=== PATIENT | male | born 1970 | race Caucasian/White ===

== ENCOUNTER 2023-05-15 16:11 | Inpatient (IN) | payer OTHER ==
[2023-05-15 17:03] VITALS: BMI 18.5
[2023-05-15] MEDS ORDERED: NICOTINE POLACRILEX 2 MG GUM BUC PRN (19:50)
[2023-05-15] MEDS ORDERED: LOPERAMIDE HCL 2 MG CAPSULE PO PRN (19:50)
[2023-05-15] MEDS ORDERED: IBUPROFEN 400 MG TABLET (FP) PO PRN (19:50)
[2023-05-15] MEDS ORDERED: guaiFENesin 600 MG TABLET.ER (FP) PO PRN (19:50)
[2023-05-15] MEDS ORDERED: BENZONATATE 200 MG CAPSULE PO PRN (19:50)
[2023-05-15] MEDS ORDERED: BENZOCAINE/MENTHOL (CHLORASEPTIC ) LOZENGE MM PRN (19:50)
[2023-05-15] MEDS ORDERED: NALOXONE HCL (KLOXXADO) 8 MG SPRAY NS PRN (19:50)
[2023-05-15] MEDS ORDERED: NALOXONE HCL 0.4 MG/ML VIAL IM PRN (19:50)
[2023-05-15] MEDS ORDERED: MAG HYDROX/AL HYDROX/SIMETH 30 ML UNIT-DOSE CUP PO PRN (19:50)
[2023-05-15] MEDS ORDERED: POLYETHYLENE GLYCOL (HEALTHYLAX) 3350 17 GM PACKET PO PRN (19:50)
[2023-05-15] MEDS ORDERED: hydrOXYzine PAMOATE 25 MG CAPSULE (FP) PO PRN (19:50)
[2023-05-15] MEDS ORDERED: TUBERCULIN PPD 5 TU/0.1ML VIAL ID ONE ×2 (22:14→23:08)
[2023-05-15] MEDS: THIAMINE HCL 100 MG TABLET (FP) PO SCH (22:29)
[2023-05-15] MEDS: MELATONIN 5 MG TABLETS PO SCH (22:29)
[2023-05-15] MEDS: TUBERCULIN PPD 5 TU/0.1ML SYRINGE (IN PATIENT USE ONLY) ID ONE (22:56)
[2023-05-16] MEDS: NICOTINE 14 MG/24 HOURS TOPICAL PATCH TD SCH (09:41)
[2023-05-16] MEDS: PHENYTOIN NA EXTENDED 100 MG CAPSULE (FP) PO SCH (09:41)
[2023-05-16] MEDS: PRENATAL VITAMINS W/ FOLIC ACID TABLET (FP) PO SCH (09:42)
[2023-05-16] MEDS ORDERED: methaDONE HCL 10 MG TABLET PO SCH (10:00)
[2023-05-16 11:51] LABS: HEMATOCRIT 38.4 % (35.4-49); HEMOGLOBIN 12.8 GM/dL (11.7-16.9); MCH 29.5 pg (25.7-33.7); MCHC 33.4 g/dl (32.0-35.9); MEAN CELL VOLUME 88.6 fl (80-96); MEAN PLT VOLUME 9.5 fl (7.5-11.1); PLATELET COUNT 247 10^3/uL (134-434); RBC 4.33 M/mm3 (4.00-5.60); RDW 14.2 % (11.9-15.9); WHITE BLOOD COUNT 8.3 K/mm3 (4.0-10.0)
[2023-05-16 12:07] LABS: PH,URINE 7.5 (5.0-8.0); URINE APPEARANCE CLEAR; URINE BILIRUBIN NEGATIVE (NEGATIVE); URINE COLOR YELLOW; URINE GLUCOSE (UA) NEGATIVE (NEGATIVE); URINE KETONE NEGATIVE (NEGATIVE); URINE LEUK ESTERASE NEGATIVE (NEGATIVE); URINE NITRITE NEGATIVE (NEGATIVE); URINE PROTEIN NEGATIVE (NEGATIVE); URINE UROBILINOGEN 0.2 mg/dL (0.2-1.0)
[2023-05-16 12:54] LABS: CHLORIDE 102 mmol/L (98-107); POTASSIUM 4.1 mmol/L (3.5-5.1); SODIUM 139 mmol/L (136-145)
[2023-05-16 12:58] LABS: ALBUMIN 3.2 g/dl (3.4-5.0); ANION GAP 4 mmol/L (4-13); BLOOD UREA NITROGEN 16.5 mg/dL (7-18); CALCIUM 8.9 mg/dL (8.5-10.1); CO2 33 mmol/L (21-32); GLUCOSE,RANDOM 103 mg/dL (74-106)
[2023-05-16 13:01] LABS: CREATININE 0.9 mg/dL (0.55-1.3); SGOT/AST 10 U/L (15-37); SGPT/ALT 14 U/L (13-61)
[2023-05-16 13:02] LABS: BILIRUBIN,TOTAL 0.2 mg/dL (0.2-1)
[2023-05-16 13:03] LABS: TOT PROT 6.9 g/dl (6.4-8.2)
[2023-05-16 13:04] LABS: ALK PHOS 72 U/L (45-117)
[2023-05-16] MEDS: PHENYTOIN NA EXTENDED 100 MG CAPSULE (FP) PO ONE (16:59)
[2023-05-19] MEDS ORDERED: NICOTINE 14 MG/24 HOURS TOPICAL PATCH TD PRN (13:45)
[2023-05-19] MEDS: PHENYTOIN NA EXTENDED 100 MG CAPSULE (FP) PO SCH (21:02)
[2023-05-20] MEDS: ACETAMINOPHEN 325 MG TABLET (FP) PO PRN (06:16)
[2023-05-23] MEDS: MELATONIN 5 MG TABLETS PO SCH (21:18)
[2023-05-26] MEDS: SIMETHICONE 80 MG TAB.CHEW (FP) PO PRN (22:02)
[2023-05-26] MEDS: BACITRACIN ZINC 15 GM TUBE TOPICAL OINTMENT TP SCH (22:07)
[2023-05-27] MEDS: MAGNESIUM HYDROX 2400MG/30ML ORAL SUSPENSION 30 ML CUP PO PRN (21:32)
[2023-05-29] MEDS: IBUPROFEN 600 MG TABLET (FP) PO PRN (06:02)
[2023-06-01 07:34] VITALS: RESP 18
[2023-06-02 22:42] VITALS: BP 157/94; PULSE 97; TEMP 97.7
== END 2023-06-03 07:11 | disposition short-term general hospital (02) | DRG 772 ==
LOC: YASAS 16:11 → Y3E 21:54
PROVIDERS: ADMIT Allergy & Immunology; ATTEND Psychiatry & Neurology Pain Medicine
PROC: HZ42ZZZ Group Counseling for Substance Abuse Treatment, Cognitive-Behavioral (ICD-10-PCS; principal; 2023-05-15)
DX: F14.20 Cocaine dependence, uncomplicated (principal); F11.20 Opioid dependence, uncomplicated; F13.20 Sedative, hypnotic or anxiolytic dependence, uncomplicated; F12.20 Cannabis dependence, uncomplicated; F17.210 Nicotine dependence, cigarettes, uncomplicated; F19.282 Other psychoactive substance dependence with psychoactive substance-induced sleep disorder; J18.9 Pneumonia, unspecified organism; G40.909 Epilepsy, unspecified, not intractable, without status epilepticus; J45.909 Unspecified asthma, uncomplicated; J32.9 Chronic sinusitis, unspecified; I10 Essential (primary) hypertension; Z86.19 Personal history of other infectious and parasitic diseases
CPT/HCPCS: 36415; 80053; 80185; 80307; 81003; 85027; 86593; 86780; 87635; 93005; 93010

== ENCOUNTER 2023-06-03 13:21 | Inpatient (IN) | payer OTHER ==
[2023-06-03 13:59] VITALS: BMI 20.6
[2023-06-03] MEDS: methaDONE HCL 10 MG TABLET PO ONE (18:00)
[2023-06-03] MEDS: PHENYTOIN NA EXTENDED 100 MG CAPSULE (FP) PO ONE (18:00)
[2023-06-03] MEDS ORDERED: guaiFENesin 600 MG TABLET.ER (FP) PO PRN (18:51)
[2023-06-03] MEDS ORDERED: hydrOXYzine PAMOATE 25 MG CAPSULE (FP) PO PRN (18:51)
[2023-06-03] MEDS ORDERED: BENZOCAINE/MENTHOL (CHLORASEPTIC ) LOZENGE MM PRN (18:51)
[2023-06-03] MEDS ORDERED: NALOXONE HCL 0.4 MG/ML VIAL IM PRN (18:51)
[2023-06-03] MEDS ORDERED: BENZONATATE 200 MG CAPSULE PO PRN (18:51)
[2023-06-03] MEDS ORDERED: POLYETHYLENE GLYCOL (HEALTHYLAX) 3350 17 GM PACKET PO PRN (18:51)
[2023-06-03] MEDS ORDERED: NALOXONE HCL (KLOXXADO) 8 MG SPRAY NS PRN (18:51)
[2023-06-03] MEDS ORDERED: LOPERAMIDE HCL 2 MG CAPSULE PO PRN (18:51)
[2023-06-03] MEDS ORDERED: MAGNESIUM HYDROX 2400MG/30ML ORAL SUSPENSION 30 ML CUP PO PRN (18:51)
[2023-06-03] MEDS ORDERED: MAG HYDROX/AL HYDROX/SIMETH 30 ML UNIT-DOSE CUP PO PRN (18:51)
[2023-06-03] MEDS ORDERED: IBUPROFEN 400 MG TABLET (FP) PO PRN (18:51)
[2023-06-03] MEDS ORDERED: ALBUTEROL SO4 HFA INHALER IH PRN (19:04)
[2023-06-03] MEDS: MELATONIN 5 MG TABLETS PO SCH (21:37)
[2023-06-03] MEDS: PHENYTOIN NA EXTENDED 100 MG CAPSULE (FP) PO SCH (21:38)
[2023-06-03] MEDS: THIAMINE HCL 100 MG TABLET (FP) PO SCH (21:38)
[2023-06-04 02:22] LABS: URINE APPEARANCE CLEAR; URINE BILIRUBIN NEGATIVE (NEGATIVE); URINE COLOR DK YELLOW; URINE GLUCOSE (UA) NEGATIVE (NEGATIVE); URINE KETONE TRACE (NEGATIVE); URINE LEUK ESTERASE NEGATIVE (NEGATIVE); URINE NITRITE NEGATIVE (NEGATIVE); URINE PROTEIN TRACE (NEGATIVE)
[2023-06-04] MEDS ORDERED: methaDONE HCL 10 MG TABLET PO ONE (06:00)
[2023-06-04] MEDS: AZITHROMYCIN 500 MG TABLET PO SCH (10:03)
[2023-06-04] MEDS: LORATADINE 10 MG TABLET PO SCH (10:03)
[2023-06-04] MEDS: PRENATAL VITAMINS W/ FOLIC ACID TABLET (FP) PO SCH (10:03)
[2023-06-04 10:56] LABS: CHLORIDE 105 mmol/L (98-107); POTASSIUM 4.1 mmol/L (3.5-5.1); SODIUM 140 mmol/L (136-145)
[2023-06-04 11:02] LABS: CALCIUM 9.2 mg/dL (8.5-10.1)
[2023-06-04 11:03] LABS: ALBUMIN 3.7 g/dl (3.4-5.0); ANION GAP 9 mmol/L (4-13); BLOOD UREA NITROGEN 19.7 mg/dL (7-18); CO2 26 mmol/L (21-32); GLUCOSE,RANDOM 128 mg/dL (74-106)
[2023-06-04 11:04] LABS: CREATININE 0.8 mg/dL (0.55-1.3); SGPT/ALT 38 U/L (13-61)
[2023-06-04 11:05] LABS: TOT PROT 7.5 g/dl (6.4-8.2)
[2023-06-04 11:06] LABS: BILIRUBIN,TOTAL 0.2 mg/dL (0.2-1); SGOT/AST 27 U/L (15-37)
[2023-06-04 11:07] LABS: ALK PHOS 106 U/L (45-117)
[2023-06-04 11:11] LABS: HEMATOCRIT 38.7 % (35.4-49); HEMOGLOBIN 12.5 GM/dL (11.7-16.9); MCH 28.9 pg (25.7-33.7); MCHC 32.4 g/dl (32.0-35.9); MEAN CELL VOLUME 89.3 fl (80-96); MEAN PLT VOLUME 10.2 fl (7.5-11.1); PLATELET COUNT 205 10^3/uL (134-434); RBC 4.33 M/mm3 (4.00-5.60); RDW 15.1 % (11.9-15.9); WHITE BLOOD COUNT 11.6 K/mm3 (4.0-10.0)
[2023-06-04] MEDS: ACETAMINOPHEN 325 MG TABLET (FP) PO PRN (12:40)
[2023-06-05] MEDS ORDERED: methaDONE HCL 10 MG TABLET PO ONE ×2 (09:00→09:09)
[2023-06-05] MEDS: methaDONE HCL 10 MG TABLET PO ONE (09:31)
[2023-06-05] MEDS: IBUPROFEN 600 MG TABLET (FP) PO PRN (15:03)
[2023-06-06] MEDS ORDERED: methaDONE HCL 10 MG TABLET PO SCH ×2 (06:00)
[2023-06-06 07:14] VITALS: RESP 18
[2023-06-06] MEDS ORDERED: methaDONE HCL 10 MG TABLET PO ONE (09:07)
[2023-06-06] MEDS: MUPIROCIN CA 2% TOPICAL CREAM 15 GM TUBE TP SCH (21:40)
[2023-06-08 07:27] VITALS: BP 147/86; PULSE 100; TEMP 98.1
== END 2023-06-08 10:20 | disposition other institution (70) | DRG 772 ==
LOC: YASAS 13:21 → Y5N 18:42
PROVIDERS: ADMIT Allergy & Immunology; ATTEND Psychiatry & Neurology Pain Medicine
PROC: HZ42ZZZ Group Counseling for Substance Abuse Treatment, Cognitive-Behavioral (ICD-10-PCS; principal; 2023-06-03)
DX: F14.20 Cocaine dependence, uncomplicated (principal); F11.20 Opioid dependence, uncomplicated; F17.210 Nicotine dependence, cigarettes, uncomplicated; G40.909 Epilepsy, unspecified, not intractable, without status epilepticus; R73.9 Hyperglycemia, unspecified; R91.8 Other nonspecific abnormal finding of lung field; Z87.01 Personal history of pneumonia (recurrent); Z86.19 Personal history of other infectious and parasitic diseases; Z56.0 Unemployment, unspecified; Z59.00 Homelessness unspecified
CPT/HCPCS: 36415; 71046-TC-FY; 80053; 80307; 81003; 82962; 85027; 86593; 86780; 87635

== ENCOUNTER 2023-11-17 16:15 | Inpatient (IN) | payer OTHER ==
[2023-11-17 16:52] VITALS: BMI 19.6
[2023-11-17] MEDS ORDERED: LOPERAMIDE HCL 2 MG CAPSULE PO PRN (18:24)
[2023-11-17] MEDS ORDERED: IBUPROFEN 600 MG TABLET (FP) PO PRN (18:24)
[2023-11-17] MEDS ORDERED: NALOXONE HCL 0.4 MG/ML VIAL IM PRN (18:24)
[2023-11-17] MEDS ORDERED: NICOTINE POLACRILEX 2 MG LOZENGE BC PRN (18:24)
[2023-11-17] MEDS ORDERED: NALOXONE (NARCAN) HCL 4 MG/0.1 ML SPRAY NS PRN (18:24)
[2023-11-17] MEDS ORDERED: MAG HYDROX/AL HYDROX/SIMETH 30 ML UNIT-DOSE CUP PO PRN (18:24)
[2023-11-17] MEDS ORDERED: BENZOCAINE/MENTHOL (CHLORASEPTIC ) LOZENGE MM PRN (18:24)
[2023-11-17] MEDS ORDERED: guaiFENesin 600 MG TABLET.ER (FP) PO PRN (18:24)
[2023-11-17] MEDS ORDERED: ACETAMINOPHEN 325 MG TABLET (FP) PO PRN (18:24)
[2023-11-17] MEDS ORDERED: IBUPROFEN 400 MG TABLET (FP) PO PRN (18:24)
[2023-11-17] MEDS ORDERED: BENZONATATE 200 MG CAPSULE PO PRN (18:24)
[2023-11-17] MEDS: THIAMINE 100 MG TABLET PO SCH (22:31)
[2023-11-17] MEDS: levETIRAcetam 500 MG TABLET (FP) PO SCH (22:31)
[2023-11-17] MEDS: MELATONIN 5 MG TABLETS PO SCH (22:31)
[2023-11-18 08:00] LABS: PH,URINE 6.5 (5.0-8.0); URINE APPEARANCE CLEAR; URINE BILIRUBIN NEGATIVE (NEGATIVE); URINE COLOR YELLOW; URINE GLUCOSE (UA) TRACE (NEGATIVE); URINE KETONE NEGATIVE (NEGATIVE); URINE LEUK ESTERASE NEGATIVE (NEGATIVE); URINE NITRITE NEGATIVE (NEGATIVE); URINE PROTEIN NEGATIVE (NEGATIVE)
[2023-11-18] MEDS: PRENATAL VITAMINS W/ FOLIC ACID TABLET (FP) PO SCH (10:32)
[2023-11-18 10:34] LABS: HEMATOCRIT 36.4 % (35.4-49); HEMOGLOBIN 12.2 GM/dL (11.7-16.9); MCH 30.6 pg (25.7-33.7); MCHC 33.4 g/dl (32.0-35.9); MEAN CELL VOLUME 91.8 fl (80-96); MEAN PLT VOLUME 10.6 fl (7.5-11.1); PLATELET COUNT 130 10^3/uL (134-434); RBC 3.97 M/mm3 (4.00-5.60); RDW 13.7 % (11.9-15.9)
[2023-11-18 10:37] LABS: POTASSIUM 3.8 mmol/L (3.5-5.1)
[2023-11-18 10:42] LABS: ALBUMIN 3.1 g/dl (3.4-5.0); CALCIUM 8.6 mg/dL (8.5-10.1)
[2023-11-18 10:44] LABS: BLOOD UREA NITROGEN 16.1 mg/dL (7-18)
[2023-11-18 10:46] LABS: CREATININE 0.7 mg/dL (0.55-1.3)
[2023-11-18 10:47] LABS: BILIRUBIN,TOTAL 0.2 mg/dL (0.2-1); TOT PROT 5.8 g/dl (6.4-8.2)
[2023-11-18] MEDS: methaDONE HCL 40 MG DISPERSABLE TABLET PO SCH (11:53)
[2023-11-22] MEDS: MAGNESIUM HYDROX 2400MG/30ML ORAL SUSPENSION 30 ML CUP PO PRN (06:13)
[2023-11-22] MEDS: POLYETHYLENE GLYCOL (HEALTHYLAX) 3350 17 GM PACKET PO PRN (12:45)
[2023-11-23] MEDS: NICOTINE POLACRILEX 2 MG GUM BUC PRN (10:31)
[2023-11-23] MEDS ORDERED: BISACODYL 5 MG TABLET.DR (FP) PO PRN (16:11)
[2023-11-23] MEDS: SODIUM PHOSPHATE/NA BIPHOS 133 ML ENEMA RC ONE (17:27)
[2023-11-23] MEDS: DOCUSATE SODIUM 100 MG CAPSULE (FP) PO SCH (21:22)
[2023-11-23] MEDS: BACLOFEN 10 MG TABLET (FP) PO SCH (21:22)
[2023-11-24] MEDS: TAMSULOSIN HCL 0.4 MG CAP PO SCH (07:49)
[2023-11-25] MEDS: methaDONE HCL 40 MG DISPERSABLE TABLET PO SCH (05:57)
[2023-11-26] MEDS: P-EPHED 60MG/TRIPROLIDI 2.5MG TABLET PO PRN (09:54)
[2023-11-26 15:05] VITALS: BP 107/71; PULSE 81; RESP 18; TEMP 98.1
== END 2023-11-26 15:26 | disposition left against medical advice (07) | DRG 772 ==
LOC: YASAS 16:15 → Y3NR 19:08 → Y3E 11-19 11:59
PROVIDERS: ADMIT Allergy & Immunology; ATTEND Psychiatry & Neurology Pain Medicine
PROC: HZ42ZZZ Group Counseling for Substance Abuse Treatment, Cognitive-Behavioral (ICD-10-PCS; principal; 2023-11-17)
DX: F14.20 Cocaine dependence, uncomplicated (principal); F11.20 Opioid dependence, uncomplicated; F12.20 Cannabis dependence, uncomplicated; F17.210 Nicotine dependence, cigarettes, uncomplicated; F19.982 Other psychoactive substance use, unspecified with psychoactive substance-induced sleep disorder; F91.8 Other conduct disorders; G40.909 Epilepsy, unspecified, not intractable, without status epilepticus; K59.00 Constipation, unspecified; N40.0 Benign prostatic hyperplasia without lower urinary tract symptoms; W18.39XA Other fall on same level, initial encounter; Y04.0XXA Assault by unarmed brawl or fight, initial encounter; Y92.239 Unspecified place in hospital as the place of occurrence of the external cause; Z56.0 Unemployment, unspecified
CPT/HCPCS: 36415; 80053; 80177; 80305; 81003; 85027; 86593; 86780; 87811; J0475